=== PATIENT | male | born 1955 | race Caucasian/White ===

== ENCOUNTER → 2019-05-19 | Outpatient (CLI) | payer OTHER ==
--- NOTE | 2019-05-19 18:38 | CONS ---
CONSULTATION DATE OF SERVICE: 05/19/2019 This patient is a 63-year-old gentleman who [facility] for obstructive sleep apnea-hypopnea syndrome. HISTORY OF PRESENT ILLNESS/SLEEP-WAKE EVALUATION: We have known this patient for many years. The last time I saw the patient was in 2011. At that time, sleep study showed moderate obstructive sleep apnea-hypopnea syndrome. Since that time the patient has been on treatment with CPAP every night for the whole night. Recently, according to his , he started to have snoring while using his CPAP and started to have some awakenings from sleep. His sleep schedule is from around 9 to 11 p.m. until 5:30 a.m. Usually no problems with falling asleep. He does have a TV set in the bedroom. He usually sleeps on the back position. No history of hypnagogic hallucinations, sleep paralysis or cataplexy. During the day, the patient may have episodes of sleepiness. Glidden Sleepiness Scale has significantly increased to 12. He may take one nap in the afternoon. The patient continues to use his CPAP equipment every night for the whole night. I checked his CPAP unit. Usage is 30/30 nights for more than 4 hours with average usage 6.8 hours. CPAP pressure is 9 cm of water. His machine does not have information about apnea-hypopnea index. The patient's weight has increased from 218 pounds during his previous sleep study to 234 pounds today. PAST MEDICAL HISTORY: Past medical history is positive for: 1. Hypertension. 2. Rheumatoid arthritis. 3. Left leg venous thrombosis and pulmonary embolism in August of 2018. PAST SURGICAL HISTORY: 1. Hemorrhoidectomy. 2. Tonsillectomy. 3. Adenoidectomy. MEDICATIONS: 1. Humira. 2. Aspirin. 3. Eliquis. 4. Hydrochlorothiazide. 5. Losartan. 6. Prednisone 10 mg. 7. Diclofenac. REVIEW OF SYSTEMS: Awakenings from sleep, sleepiness during the day. FAMILY HISTORY: Hypertension, hyperlipidemia, arthritis, sleep apnea, snoring, diabetes, thyroid problems. SOCIAL HISTORY: Negative for smoking. Alcohol consumption occasional. PHYSICAL EXAMINATION: GENERAL: A pleasant 63-year-old gentleman without distress. VITAL SIGNS: BP 149/71, HR 77, RR 16, height 5 feet 8-3/4 inches, weight 234.6 pounds, body mass index 34.8, temperature 98.1, oxygen saturation at room air 95%. HEENT: PERRLA, EOMI. Evaluation of oropharynx showed tongue protrudes midline. Extremely low position of soft palate. Mallampati IV. Retrognathia about of 2 mm. Some restriction of nasal breathing. NECK: Supple. No JVD. Thyroid is not palpable. LUNGS: Clear to percussion and to auscultation. Good air exchange. No wheezing or rhonchi. HEART: S1, S2 regular. No murmurs, gallops or rubs. ABDOMEN: Obese. EXTREMITIES: Diameter of left ankle more than right ankle. IMPRESSION: 1. Obstructive sleep apnea-hypopnea syndrome. The patient continues to use his CPAP equipment every night for the whole night. Recently he has started to have snoring while using the machine, awakenings from sleep, sleepiness during the day. Glidden Sleepiness Scale has increased to 12. Extremely low soft palate, wide neck; obstructive sleep apnea-hypopnea syndrome. 2. Obesity; body mass index 34.8. 3. History of deep venous thrombosis of left leg. 4. History of pulmonary embolism in August of 2018. 5. Hypertension. 6. Rheumatoid arthritis. 7. Status post hemorrhoidectomy. PLAN: 1. Repeat CPAP titration for evaluation of effective CPAP pressure at the present time after patient's weight increase. 2. Patient will continue to use CPAP equipment every night for the whole night. 3. Losing weight. 4. Sleep hygiene with regular time in bed for at least 7-1/2 to 8 hours. 5. I will maintain prescriptions for all necessary CPAP supplies, including Andrews FX nasal pillows, tube, filters. After titration, the patient should get new PAP equipment. Thank you very much for allowing me to participate in the management of your patient. Sincerely, Hernandez Rodarte MD, PhD, FAASM Diplomat of [place] [employer] [place] [employer] Programs Assistant of [facility] [place] MMODL / IJN: [id number] /
== END | disposition home or self-care (01) ==
LOC: SLEEP 15:02
PROVIDERS: ATTEND Internal Medicine
DX: G47.33 Obstructive sleep apnea (adult) (pediatric) (principal); E66.9 Obesity, unspecified; Z68.34 Body mass index [BMI] 34.0-34.9, adult; Z86.711 Personal history of pulmonary embolism; Z86.718 Personal history of other venous thrombosis and embolism; I10 Essential (primary) hypertension; M06.9 Rheumatoid arthritis, unspecified; Z99.89 Dependence on other enabling machines and devices; Z98.890 Other specified postprocedural states; Z79.82 Long term (current) use of aspirin; Z79.01 Long term (current) use of anticoagulants; Z79.1 Long term (current) use of non-steroidal anti-inflammatories (NSAID); Z79.899 Other long term (current) drug therapy
CPT/HCPCS: 99211